=== PATIENT | female | born 1940 | race Caucasian/White ===

== ENCOUNTER → 2018-04-19 12:52 | Outpatient (CLI) | payer MEDICARE, SELFPAY | PROVIDERS: Family Provider Family Medicine; PCP Family Medicine; Referring Provider Radiology Radiation Oncology; Visit Provider Radiology Radiation Oncology | DX: Z85.42 Personal history of malignant neoplasm of other parts of uterus (principal) | CPT/HCPCS: 88175; G0145 ==

== ENCOUNTER → 2019-05-09 10:20 | Outpatient (CLI) | payer MEDICARE, SELFPAY | PROVIDERS: Family Provider Family Medicine; PCP Family Medicine; Referring Provider Radiology Radiation Oncology; Visit Provider Radiology Radiation Oncology | DX: Z85.42 Personal history of malignant neoplasm of other parts of uterus (principal) | CPT/HCPCS: 88175; G0145 ==